=== PATIENT | male | born 1965 | race Caucasian/White ===

== ENCOUNTER 2018-08-18 16:51 | Emergency (ER) | payer OTHER ==
[~2018-08-18] VITALS: Ht 182.9 cm; Wt 89.4 kg
--- NOTE | 2018-08-18 17:23 | NUR ---
PT TO ED REPORTING HERNIA TO L UMBILICUS TO GROIN. TENDERNESS TO AREA
--- NOTE | 2018-08-18 17:30 | NUR ---
PT AWARE THAT A CLEAN CATCH URINE IS ORDERED. UNABLE TO URINATE AT THIS TIME. WATER TO PT.
[2018-08-18 17:50] LABS: ALBUMIN 3.5 g/dL (3.4-5.0); ANION GAP 6 mmol/L (5-15); CALCIUM 8.6 mg/dL (8.5-10.1); CHLORIDE 110 mmol/L (98-107)
[2018-08-18 17:52] LABS: BASOPHILS # (AUTO) 0.03 x10^3/uL (0-0.1); BASOPHILS % (AUTO) 0 % (0-1); EOSINOPHILS # (AUTO) 0.25 x10^3/uL (0-0.4); EOSINOPHILS % (AUTO) 3 % (1-7); LYMPHOCYTES # (AUTO) 1.86 x10^3/uL (1-3.4); LYMPHOCYTES % (AUTO) 22 % (22-44); MD NO; MEAN CORPUSCULAR HEMOGLOBIN 29.5 pg (27.5-34.5); MEAN CORPUSCULAR HGB CONC 33.2 g/dL (33.2-36.2); MEAN PLATELET VOLUME 7.4 fL (7.4-10.4); MONOCYTES # (AUTO) 0.56 x10^3/uL (0.2-0.8); MONOCYTES % (AUTO) 7 % (2-9); NEUTROPHILS # (AUTO) 5.74 x10^3/uL (1.8-6.8); NEUTROPHILS % (AUTO) 68 % (42-75); PLATELET COUNT 326 x10^3/uL (130-400); RED BLOOD COUNT 5.36 x10^6/uL (4.38-5.82); RED CELL DISTRIBUTION WIDTH 13.9 % (9.4-14.8)
[2018-08-18 17:56] LABS: ALANINE AMINOTRANSFERASE 29 U/L (12-78); ALKALINE PHOSPHATASE 90 U/L (45-117); BILIRUBIN,TOTAL 0.5 mg/dL (0.2-1.0); CREATININE 1.09 mg/dL (0.7-1.3)
[2018-08-18 18:28] LABS: MICROSCOPIC AUTO
[2018-08-18 18:29] LABS: CULTURE INDICATED? YES
--- NOTE | 2018-08-18 18:50 | NUR ---
Report from Summer CONTRERAS.
--- NOTE | 2018-08-18 19:00 | NUR ---
Provider to bedside for pt update complete.
[2018-08-18 19:13] VITALS: BP 129/77
== END 2018-08-18 19:22 | disposition home or self-care (01) ==
LOC: ED 19:15
DX: K57.32 Diverticulitis of large intestine without perforation or abscess without bleeding (principal); K40.90 Unilateral inguinal hernia, without obstruction or gangrene, not specified as recurrent
CPT/HCPCS: 36415; 74176; 80053; 81001; 83690; 85025; 87086; 99284

== ENCOUNTER 2018-10-06 13:32 | Outpatient (CLI) | payer OTHER ==
[2018-10-06] MEDS ORDERED: No meds per pt. (13:57)
== END 2018-10-06 23:59 | disposition home or self-care (01) ==
LOC: STAR 13:32
PROVIDERS: ATTEND Surgery
DX: Z02.9 Encounter for administrative examinations, unspecified (principal)

== ENCOUNTER 2018-10-18 07:06 | Day surgery (SDC) | payer OTHER ==
[~2018-10-18] VITALS: Ht 182.9 cm; Wt 87.6 kg
[~2018-10-18 07:06] MED LIST: No meds per pt.
[2018-10-18] MEDS ORDERED: LACTATED RINGERS 1,000 ML IV SCH (07:28)
[2018-10-18 07:31] VITALS: BP 121/84
[2018-10-18] MEDS ORDERED: BUPIVACAINE/PF-EPI 0.5% 1:200K ONE (09:29)
[2018-10-18] MEDS ORDERED: MIDAZOLAM 1 MG/ML, 2ML IV PRN (09:30)
[2018-10-18] MEDS ORDERED: MEPERIDINE/PF 25MG/0.5ML IVPush PRN (09:30)
[2018-10-18] MEDS ORDERED: LABETALOL 5MG/ML, 20ML IV PRN (09:30)
[2018-10-18] MEDS ORDERED: ONDANSETRON 2MG/ML, 2ML IVPush PRN (09:30)
[2018-10-18] MEDS ORDERED: FENTANYL PF 100 MCG/2ML IV PRN (09:30)
[2018-10-18] MEDS ORDERED: HYDROmorphone 1 MG/ML, 1ML IV PRN (09:30)
[2018-10-18] MEDS ORDERED: OXYcodone 5 MG/5 ML ORAL.SOL UDC PO PRN ×2 (09:30→11:30)
[2018-10-18] MEDS ORDERED: BUPIVACAINE/PF-EPI 0.5% 1:200K INFIL ONE (09:46)
[2018-10-18] MEDS ORDERED: LIDOCAINE 2% 100MG/5ML SYRINGE ONE (09:46)
[2018-10-18] MEDS ORDERED: ONDANSETRON 2MG/ML, 2ML ONE (09:46)
[2018-10-18] MEDS ORDERED: CEFAZOLIN 1,000 MG ONE (09:46)
[2018-10-18] MEDS ORDERED: PROPOFOL 10 MG/ML, 20ML ONE (09:46)
[2018-10-18] MEDS ORDERED: ROCURONIUM 10MG/ML,5ML ONE (09:46)
[2018-10-18] MEDS ORDERED: METOCLOPRAMIDE 5 MG/ML, 2ML ONE (09:46)
[2018-10-18] MEDS ORDERED: DEXAMETHASONE 4 MG/ML, 1ML ONE (09:46)
[2018-10-18] MEDS ORDERED: PHENYLEPHRINE 10 MG/ML ONE (09:46)
[2018-10-18] MEDS ORDERED: MIDAZOLAM 1 MG/ML, 2ML ONE (09:50)
[2018-10-18] MEDS ORDERED: FENTANYL PF 100 MCG/2ML ONE (09:50)
== END 2018-10-18 16:45 | disposition home or self-care (01) ==
LOC: OUT 07:06
PROVIDERS: ATTEND Surgery
DX: K40.90 Unilateral inguinal hernia, without obstruction or gangrene, not specified as recurrent (principal)
CPT/HCPCS: 36415; 49650; 85018; C1781; J0690; J1100; J2250; J2370; J2405; J2704; J2765; J3010; J7120; S2900